=== PATIENT | female | born 1990 | race Caucasian/White ===

== ENCOUNTER 2019-03-25 19:52 | Emergency (ER) | payer SELFPAY ==
[~2019-03-25] VITALS: Ht 165.1 cm; Wt 77.3 kg
[~2019-03-25 19:52] MED LIST: IBU600 MG PO; PERCOCET 325 MG1 TA2 PO; PRENATAL1 TA1; TYLENOL 500MG500 MG PO
[2019-03-25 20:09] VITALS: BP 135/81; TEMP 98.3
[2019-03-25] MEDS ORDERED: FLEXERIL 1010 MG/TAB PO (21:22)
[2019-03-25] MEDS ORDERED: MEDROL 4MG DOSPA4 MG PO (21:22)
[2019-03-25 21:51] VITALS: PULSE 58
== END 2019-03-25 21:51 | disposition home or self-care (01) ==
LOC: COL.ER 19:52
DX: M54.41 Lumbago with sciatica, right side (principal); F17.210 Nicotine dependence, cigarettes, uncomplicated
CPT/HCPCS: J1885; J2360

== ENCOUNTER → 2020-01-26 | Outpatient (CLI) | payer SELFPAY ==
[~2020-01-26] MED LIST changes: +FLEXERIL 1010 MG/TAB PO; +MEDROL 4MG DOSPA4 MG PO
== END ==
LOC: EDSTATUS 16:14 → ZCOL.LAB 17:49
DX: B34.9 Viral infection, unspecified (principal); Z20.828 Contact with and (suspected) exposure to other viral communicable diseases